=== PATIENT | female | born 1965 | race Caucasian/White ===

== ENCOUNTER 2016-03-05 08:44 | Day surgery (SDC) | payer BC ==
[~2016-03-05] VITALS: Ht 172.7 cm; Wt 72.5 kg
[~2016-03-05 08:44] MED LIST: AMBIEN5 MG PO; SYNTHROID25 MCG PO
[2016-03-05 09:29] VITALS: BP 106/60
[2016-03-05 11:15] VITALS: BP 109/63
[2016-03-05 12:13] VITALS: BP 106/54
== END 2016-03-05 12:16 | disposition home or self-care (01) ==
LOC: SDC 08:44
DX: N93.8 Other specified abnormal uterine and vaginal bleeding (principal); N84.0 Polyp of corpus uteri; E03.9 Hypothyroidism, unspecified; Z85.820 Personal history of malignant melanoma of skin
CPT/HCPCS: 88305; J0131; J0690; J1885; J2250; J3010

== ENCOUNTER 2017-03-11 06:20 | Day surgery (SDC) | payer BC ==
[~2017-03-11] VITALS: Ht 172.7 cm; Wt 67.1 kg
[2017-03-11 06:43] VITALS: BP 98/53
[2017-03-11] MEDS ORDERED: NORCO 5/3251 TABLET PO (08:58)
[2017-03-11 09:35] VITALS: BP 123/58
== END 2017-03-11 10:45 | disposition home or self-care (01) ==
LOC: SDC 06:20
DX: N93.9 Abnormal uterine and vaginal bleeding, unspecified (principal); E03.9 Hypothyroidism, unspecified
CPT/HCPCS: 88305; J0131; J0690; J1885; J2250; J3010